=== PATIENT | female | born 1995 | race African-American/Black ===

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

== ENCOUNTER 2017-01-02 19:25 | Emergency (ER) | payer OTHER ==
[~2017-01-02] VITALS: Ht 154.9 cm; Wt 54.0 kg
[2017-01-02 20:19] VITALS: BP 129/88; PULSE 90; RESP 18; O2SAT 100
--- NOTE | 2017-01-02 21:09 | ED.REPORT ---
HPI-Abd Pain F Under 40 Date of Service Jan 02, 2017 ED Provider: David Guzman MD Patient is a 21 year old female with a hx of polysubstance and IV drug use who presents to the ED complaining of bilateral back pain that radiates around to her abdomen. Associated symptoms include fever, chills, urinary urgency, and shaking. She denies dysuria, diarrhea, vomiting, or any other symptoms. She was diagnosed with a kidney stone in June and has been unable to pass it. Her urologist is Zeina Mackenzie. Nursing Notes Stated Complaint: ABDOMINAL PAIN, SHAKING Chief Complaint: General Complaint Nursing Notes Reviewed: Yes Allergies: Coded Allergies: chlorpromazine (Verified Allergy, Unknown, 06/22/16) Scheduled Cefuroxime Axetil (Cefuroxime) 500 Mg Tablet 500 MG PO BID Omeprazole (Omeprazole) 20 Mg Capsule.dr 20 MG PO DAILY Scheduled PRN Naproxen (Naprosyn) 500 Mg Tablet 500 MG PO BID PRN PRN For Pain General Time Seen by MD: 21:08 Chief Complaint Other (Back pain ) Hx Obtained From: Patient Arrived By: Walk-in Onset Occurred: Onset unknown Location: : Back Radiation: : Abdomen lower Severity: Current: Moderate Severity: Maximum: Moderate Associated with: Reports: Chills Past Medical History Past Medical History Suicidal ideation Polysubstance abuse w/multpiple prior ED Visits ADHD Ovarian cysts Reports: Mental illness Reports: IV Drug use Past Surgical History none reported Smoking History Current Every Day Smoker Social History Alcohol Use: Denies alcohol use Drug Use: IV drugs, Meth, THC Other Social History: Poor social support, Local resident Ambulatory Status Independent Review of Systems Constitutional: Reports: Chills, Fever GI: Reports: Abdominal pain, Denies: Diarrhea, Vomiting Female: Reports: Urinary urgency, Denies: Dysuria Musculoskeletal: Reports: Back pain Complete sys rev & neg: except as marked. Neurologic: Reports: Shaking Physical Exam Initial Vital Signs Vital Signs (First) Date Time Temp Pulse Resp B/P Pulse Ox O2 Delivery O2 Flow Rate FiO2 01/02/17 20:19 36.8 90 18 129/88 100 01/02/17 21:12 Room Air Initial VS: Reviewed, Vital signs normal Neck: Full range of motion Neurologic: Alert, Oriented, Nonfocal Psychiatric: Mood/affect normal, Behavior normal, Normal thought content General/Constitutional: Awake, Alert, No acute distress Respiratory / Chest: Breath sounds NL, Breath sounds = bilat, No respiratory distress Cardiovascular: Heart rate NL, Regular rhythm, Heart sounds NL Abdomen: Soft Mild lower abdominal tenderness Back: Atraumatic Head / Eyes: Normocephalic Ortez from picking skin - consistent with meth use ENT: Mucous membranes moist Skin: Warm, Dry Multiple scars on forearms from prior suicide attempts some ortez of IV drug use on forearms, old Lower Extremity / Pelvis / MS: No edema Interpretation & Diagnostics Lab Results Interpretation Result Diagram: 01/02/17210401/02/172104 Test 01/02/17 21:05 01/02/17 21:49 White Blood Count 6.9th/mm3 (3.8-10.1) Red Blood Count 4.27mil/mm3 (3.90-5.20) Hemoglobin 12.2g/dL (12.0-15.6) Hematocrit 36.4% (35.0-46.0) Mean Corpuscular Volume 85.2fL (81-100) Mean Corpuscular Hemoglobin 28.6pg (27.0-35.0) Mean Corpuscular Hemoglobin Concent 33.5% (32.0-37.0) Red Cell Distribution Width 12.3% (12.3-15.4) Platelet Count 250bil/L (150-400) Neutrophils (%) (Auto) 35.8% (40-74) Lymphocytes (%) (Auto) 54.2% (14-46) Monocytes (%) (Auto) 7.2% (4-12) Eosinophils (%) (Auto) 2.4% (0-5) Basophils (%) (Auto) 0.4% (0-3) Sodium Level 138mEq/L (134-144) Potassium Level 3.2mEq/L (3.5-5.2) Chloride Level 102mEq/L (97-108) Carbon Dioxide Level 24mmol/L (18-29) Blood Urea Nitrogen 10mg/dL (6-20) Creatinine 0.93mg/dL (0.57-1.00) Estimat Glomerular Filtration Rate 100mL/min (>59) Glucose Level 94mg/dL (60-99) Calcium Level 9.2mg/dL (8.5-10.1) Magnesium Level 2.1mg/dL (1.6-2.6) Total Bilirubin 0.2mg/dL (0.0-1.2) Aspartate Amino Transf (AST/SGOT) 15U/L (0-50) Alanine Aminotransferase (ALT/SGPT) 14U/L (0-32) Alkaline Phosphatase 53U/L (25-150) Total Protein 6.8g/dL (6.4-8.4) Albumin 4.0g/dL (3.4-5.0) Lipase 21U/L (13-60) Urine Color Yellow (YELLOW) Urine Appearance Clear (CLEAR,HAZY) Urine pH 6.5 (5.0-8.0) Urine Specific [place] 1.010 (1.003-1.035) Urine Protein Negativemg/dL (NEG,TRACE) Urine Glucose (UA) Negativemg/dL (NEGATIVE) Urine Ketones Negativemg/dL (NEGATIVE) Urine Occult Blood Negative (NEGATIVE) Urine Nitrite Negative (NEGATIVE) Urine Bilirubin Negative (NEGATIVE) Urine Urobilinogen Normalmg/dL (NORMAL) Urine Leukocyte Esterase Trace (NEGATIVE) Urine RBC 0-2/hpf (0-2) Urine WBC 6-10/hpf (0-5) Urine Epithelial Cells Few/hpf (NONE-MOD) Urine Crystals None seen (NONE SEEN) Urine Bacteria Few/hpf (NONE-FEW) Urine Hyaline Casts None/lpf (NONE) Urine Granular Casts None seen (NONE SEEN) Urine Waxy Casts None seen (NONE SEEN) Urine Red Blood Cell Casts None seen (NONE SEEN) Urine White Blood Cell Casts None seen (NONE SEEN) Urine Mucus None seen (None Seen) Urine Trichomonas None seen (NONE SEEN) Urine Yeast None (NONE SEEN) Urinalysis Comment None Urine Culture Reflexed Indicated Lab Results Interpretation: US RENAL: CONCLUSION: No renal calculi or hydronephrosis identified. Devan Chau M.D. Re-Eval/Medical Decision Med Decision/Clinical Course Med Decision/Clinical Course: 21-year-old with history of IV drug abuse presents with flank pain and urinary urgency. Urine is positive for UTI. Ultrasound shows no evidence of obstruction. Begun with Rocephin IV and Ceftin to follow. Follow-up with urology as previously scheduled. Re-Evaluation/Progress : Time of Eval: 22:29 )( Re-Eval Abdomen: Soft Re-Evaluation/Progress Note: Discussed US results. Discussed plan for discharge. Patient understands and agrees with plan. All questions addressed at this time. Counseled Regarding: Diagnosis, Lab results, Need for follow-up, When/why to return to ED Discharge & Departure Primary Impression: UTI (urinary tract infection) Urinary tract infection type: site unspecified Hematuria presence: without hematuria Qualified Code: N39.0 - Urinary tract infection, site not specified Disposition: Home Discharge Condition All VS Reviewed: Yes Condition: Stable Additional Instructions: Drink plenty of fluids and stay well-hydrated. Begin Ceftin twice daily for ten days. Follow-up with your doctor in the office. Follow-up with urology as planned. Return if any immediate issues. Naprosyn twice daily if needed for pain. Referrals: [facility] Res[facility] (PCP) Scribe Attestation Portions of this note were transcribed by Princess Murrieta. I, Dr. Guzman personally performed the history, physical exam and medical decision-making; I reviewed and confirmed the accuracy of the information in the transcribed note. Signed by: Princess Murrieta 01/02/2017, [id number] copies to: [facility] David Guzman MD Jan 02, 2017 21:09 PRINCESS MURRIETA Jan 02, 2017 21:28
[2017-01-02 21:12] VITALS: BP 122/81; PULSE 83; RESP 16; O2SAT 100
[2017-01-02 21:16] LABS: BASOPHILS % (AUTO) 0.4 % (0-3); EOSINOPHILS % (AUTO) 2.4 % (0-5); MONOCYTES % (AUTO) 7.2 % (4-12); Mean Corpuscular Hemoglobin 28.6 pg (27.0-35.0); Mean Corpuscular Volume 85.2 fL (81-100); NEUTROPHILS % (AUTO) 35.8 % (40-74); Platelet Count 250 bil/L (150-400)
[2017-01-02 21:40] LABS: Magnesium 2.1 mg/dL (1.6-2.6)
[2017-01-02 22:18] LABS: APPEARANCE,URINE CLEAR (CLEAR,HAZY); COLOR,URINE YELLOW (YELLOW); OCCULT BLOOD,URINE NEGATIVE (NEGATIVE); PH,URINE 6.5 (5.0-8.0); UROBILINOGEN,URINE NORMAL (NORMAL)
[2017-01-02] MEDS ORDERED: cefTRIAXone Inj 2,000 MG in Dextrose 5% Minibag Plus 50 ML IV ONE (22:30)
[2017-01-02] MEDS ORDERED: Ketorolac 15 mg/mL Inj IVPUSH ONE (22:30)
[2017-01-02] MEDS ORDERED: CEFU500T61 PO (23:09)
[2017-01-02] MEDS ORDERED: NAPR500T PO (23:09)
[2017-01-02 23:21] VITALS: BP 115/78; PULSE 73; RESP 14; O2SAT 100
--- NOTE | 2017-01-03 07:27 | DRSVH ---
PROCEDURE: US RENAL SONOGRAM INDICATIONS: poss hydronephrosis rt TECHNIQUE: Real-time scanning was performed of the kidneys and bladder, with image documentation. COMPARISON: [facility], US, US APPENDIX, 06/22/2016, 23:26. FINDINGS: Kidneys: Kidneys are normal in size. Right kidney measures 10.1 cm long; left kidney measures 10.0 cm long. Right renal cortical thickness is 1.3 cm; left renal cortical thickness is 1.7 cm. Renal c ortical echotexture is normal. No hydronephrosis or nephrolithiasis. No suspicious solid mass lesio ns. Bladder: Pre-void bladder volume is 127 mL. Post-void residual is zero mL. Pre-void images demonst rate no intraluminal masses or stones. On pre-void images, the left ureteral jet is noted with color Doppler interrogation. (Of note, ureteral jets may not be detectable in up to 25% of cases due to i nsufficient differences in specific gravity between ureteral and bladder urine). Miscellaneous: No free pelvic fluid. IMPRESSION: The kidneys are sonographically normal. Normal left ureteral jet. The right ureteral jet is not identified. Dictated by: Ivan Michaud M.D. on 01/03/2017 at 7:24 Approved by: Ivan Michaud M.D. on 01/03/2017 at 7:25
== END 2017-01-02 23:22 | disposition home or self-care (01) ==
LOC: SED 19:25
DX: N39.0 Urinary tract infection, site not specified (principal); F90.9 Attention-deficit hyperactivity disorder, unspecified type; F17.200 Nicotine dependence, unspecified, uncomplicated; Z88.8 Allergy status to other drugs, medicaments and biological substances
CPT/HCPCS: 36415; 76770; 80053; 81000; 81002; 81025; 83690; 83735; 85025; 87086; 87088; 96365; 96375; 99285; J0696; J1885

== ENCOUNTER 2017-01-04 18:16 | Emergency (ER) | payer OTHER ==
[~2017-01-04] VITALS: Ht 154.9 cm; Wt 54.0 kg
[~2017-01-04 18:16] MED LIST changes: +CEFU500T61 PO; +NAPR500T PO
[2017-01-04 18:33] VITALS: BP 143/106; PULSE 115; RESP 20; O2SAT 99
--- NOTE | 2017-01-04 18:53 | ED.REPORT ---
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 She usually smokes meth but today she injected it. Pt denies suicidal and homicidal ideation. She states that right after injecting the methamphetamine that her skin turned yellow and then her cat also turned yellow. She was quite disturbed by all of this and decided to come to the emergency room. She reports that she is no longer yellow. Nursing Notes Stated Complaint: OVERDOSE Chief Complaint: Substance Abuse Nursing Notes Reviewed: Yes Allergies: Coded Allergies: chlorpromazine (Verified Allergy, Unknown, 06/22/16) Scheduled Cefuroxime Axetil (Cefuroxime) 500 Mg Tablet 500 MG PO BID Omeprazole (Omeprazole) 20 Mg Capsule.dr 20 MG PO DAILY Scheduled PRN Naproxen (Naprosyn) 500 Mg Tablet 500 MG PO BID PRN PRN For Pain General Time Seen by Provider: 18:32 Chief Complaint Other (methamphetamine use) Hx Obtained From: Patient Arrived By: Ambulance Onset Occurred: Just prior to arrival Symptom Duration: Since onset Recent Healthcare: No recent doctor visit, No recent hospitalization Similar Sx Previous: No Past Medical History Past Medical History Suicidal ideation Polysubstance abuse w/multpiple prior ED Visits ADHD Ovarian cysts Reports: Mental illness Reports: IV Drug use Past Surgical History none reported Smoking History Current Every Day Smoker Social History Alcohol Use: Denies alcohol use Drug Use: IV drugs, Meth, THC Other Social History: Poor social support, Local resident Ambulatory Status Independent Review of Systems Review of Systems Note: "turned yellow" GI: Denies: Nausea, Vomiting Neurologic: Denies: Change LOC Psychiatric: Reports: Anxiety, Denies: Suicidal ideation Complete sys rev & neg: except as marked. Physical Exam Initial Vital Signs Vital Signs (First) Date Time Temp Pulse Resp B/P Pulse Ox O2 Delivery O2 Flow Rate FiO2 01/04/17 18:33 36.7 115 20 143/106 99 Room Air Initial VS: Reviewed General/Constitutional: Awake, Cooperative Behavior: Positive: Anxious Respiratory / Chest: Atraumatic, Breath sounds NL, Breath sounds = bilat, No respiratory distress Cardiovascular: Regular rhythm, Heart sounds NL, No gallop, No murmurs, No rubs Heart Rate / Rhythm: Positive: Tachycardia Abdomen: Atraumatic, Soft, Non-tender Neurologic: Oriented X3, Speech NL, No motor deficits Psychiatric: Affect NL, Mood NL, Not suicidal, Not homicidal Head / Eyes: Atraumatic, Normocephalic, PERRL, EOMI Neck: Atraumatic, Supple Upper Extremity / MS: No deformity well healing superficial abrasions to left wrist Lower Extremity / Pelvis / MS: Atraumatic, Inspection NL, No deformity Re-Eval/Medical Decision Med Decision/Clinical Course The patient is a 21 year old female w/ a hx of substance abuse with multiple prior ED visits who presents to the ED via EMS c/o turning 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 She usually smokes meth but today she injected it. Pt denies suicidal and homicidal ideation. She states that right after injecting the methamphetamine that her skin turned yellow and then her cat also turned yellow. She was quite disturbed by all of this and decided to come to the emergency room. She reports that she is no longer yellow. Here in the emergency department the patient is somewhat tachycardic in the setting of injecting methamphetamine however she is otherwise afebrile and hemodynamically stable. 1850: Pt checked. She denies suicidal and homicidal ideation. Plan for patient to speak with social work job titles. At this time, I see no evidence of acute psychiatric illness. She has been using methamphetamine however she is without chest pain, shortness of breath, suicidal ideation and there is no evidence of acute traumatic injury or acute neurologic abnormality. Do not feel that laboratory or imaging studies are indicated. Patient expresses some interest in not using methamphetamine and we have provided her with resources for seeking drug treatment. I do not feel that she requires further treatment in the emergency room. Prior to discharge follow-up and return precautions were reviewed in detail with the patient who verbalized understanding and agreement with the plan. The patient was discharged in stable condition. Counseled Regarding: Diagnosis, Lab results, Need for follow-up, When/why to return to ED Discharge & Departure Impression: Primary Impression: Methamphetamine abuse Additional Impressions: Tachycardia Anxiety Disposition: Home Discharge Condition Condition: Stable Additional Instructions: Thank you for seeking care at the emergency room. It is difficult for us to make definitive diagnoses in the ED but we believe that you are experiencing effects of injecting methamphetamine. Our primary goal today in the ED was to evaluate you for any life-threatening conditions. Your evaluation was reassuring. You should follow-up with your primary doctor in the next week. It is very important that ou stop using methamphetamine. Follow-up with the resources that we provided for you. You should return to the ED immediately if you develop thoughts of harming herself/others, any new/concerning symptoms, fevers, vomiting, cough, shortness of breath, chest pain, lightheadedness, weakness or any other concerning signs or symptoms. Thank you for letting us partake in your care today. Referrals: [facility] Res[facility] (PCP) Scribe Attestation Portion of this note were transcribed by Jewels Reynolds. I, Dr. Chanel, personally performed the history, physical exam, and medical decision-making: I reviewed and confirmed the accuracy for the information in the transcribed note. Signed by: lore Moore, 01/04/17 2000 copies to: [facility] Darius Chanel MD Jan 04, 2017 18:53 Jewels Reynolds Jan 04, 2017 19:25
[2017-01-04 19:08] VITALS: BP 144/73; PULSE 108; RESP 16; O2SAT 100
== END 2017-01-04 19:10 | disposition home or self-care (01) ==
LOC: SED 18:16 → EDUNIT# 18:16 → EDBD 18:17 → SED 19:10
DX: F15.10 Other stimulant abuse, uncomplicated (principal); R00.0 Tachycardia, unspecified; F41.9 Anxiety disorder, unspecified; F17.200 Nicotine dependence, unspecified, uncomplicated; Z79.899 Other long term (current) drug therapy; Z88.8 Allergy status to other drugs, medicaments and biological substances

== ENCOUNTER 2017-01-21 03:03 | Emergency (ER) | payer OTHER ==
[2017-01-21 03:07] VITALS: BP 166/97; PULSE 69; RESP 12; O2SAT 100
--- NOTE | 2017-01-21 03:22 | ED.REPORT ---
HPI-Overdose/Alcohol Toxicity Date of Service Jan 21, 2017 ED Provider: Dr. Monet Pt is a 21 year old female with a hx of IV drug use presenting to the ED via EMS for substance abuse. Medics report that the pt called 911 from the [employer] parking lot stating that she overdosed on meth. Pt reports that she is having a hard time breathing. Nursing Notes Stated Complaint: METH USE Chief Complaint: Substance Abuse Nursing Notes Reviewed: Yes Allergies: Coded Allergies: chlorpromazine (Verified Allergy, Unknown, 01/21/17) Scheduled Cefuroxime Axetil (Cefuroxime) 500 Mg Tablet 500 MG PO BID Omeprazole (Omeprazole) 20 Mg Capsule.dr 20 MG PO DAILY Scheduled PRN Naproxen (Naprosyn) 500 Mg Tablet 500 MG PO BID PRN PRN For Pain General Time Seen by Provider: 03:24 Chief Complaint Intoxicated, illicit drug Hx Obtained From: Patient, EMS Arrived By: Ambulance Onset Occurred: Just prior to arrival Symptom Duration: Since onset Progression Since Onset: Constant Severity: Current: No pain currently Severity: Maximum: No pain Recent Healthcare: No recent hospitalization, Recent doctor visit Similar Sx Previous: Yes Risk-Overdose/Alcohol Tox )( Suicide Risk Stratification : Prior psych admission: Substance abuse RF Statements: Risk factors reviewed Past Medical History Past Medical History Suicidal ideation Polysubstance abuse w/multiple prior ED Visits ADHD Ovarian cysts Reports: Mental illness Reports: IV Drug use Past Surgical History none reported Smoking History Current Every Day Smoker Social History Alcohol Use: Denies alcohol use Drug Use: IV drugs, Meth, THC Other Social History: Poor social support, Local resident Ambulatory Status Independent Review of Systems Unable to Obtain ROS Intoxicated Respiratory: Reports: Shortness of breath Physical Exam Initial Vital Signs Vital Signs (First) Date Time Temp Pulse Resp B/P Pulse Ox O2 Delivery O2 Flow Rate FiO2 01/21/17 03:07 36.7 69 12 166/97 100 Room Air Initial VS: Reviewed, Vital signs abnormal Head / Eyes: Atraumatic, Normocephalic, PERRL ENT: Mucous membranes moist, Conjunctiva normal, No scleral icterus Neck: Supple, Non-tender, Full range of motion Extremities: Vascular intact, Neuro intact, No swelling, No tenderness General/Constitutional: Awake Respiratory / Chest: Atraumatic, Breath sounds NL, No chest tenderness Tachypnic Cardiovascular: Regular rhythm, Heart sounds NL Tachycardic Abdomen: Atraumatic, Soft, Non-tender Neurologic: Oriented X3, Speech NL, No motor deficits, No sensory deficits Psychiatric: Not suicidal, Not homicidal Seems like she keeps looking to the right at things that aren't there, may be hallucinating. Skin: Warm, Dry Pick sores all over face Interpretation & Diagnostics Urine Tox: Positive for marijuana, meth and amphetamines Re-Eval/Medical Decision Med Decision/Clinical Course Methamphetamine toxicity. Now resolved. She is artery hooked up with [facility] for outpatient services and they are trying to get her an inpatient bed. She is discharged home with her stepfather. Re-Evaluation/Progress #1: Time of Eval: 03:27 Patient Status: Condition improved Re-Evaluation/Progress Note: Performed physical exam. Re-Evaluation/Progress #2: Time of Eval: 05:57 Patient Status: Condition improved Re-Evaluation/Progress Note: Pt much improved. Discussed plan for discharge and follow up at [facility]. Counseled Regarding: Diagnosis, Lab results, Need for follow-up, When/why to return to ED Discharge & Departure Impression: Primary Impression: Substance abuse Disposition: Home Discharge Condition All VS Reviewed: Yes Condition: Improved Patient Instructions: Methamphetamine Abuse (ED) Additional Instructions: We recommend you go to treatment. Continue your efforts with [facility] to get a treatment bed and/or do outpatient treatment. Referrals: [facility] Residency [facility] (PCP) Scribe Attestation Portions of this note were transcribed by Brielle Bran. I, Dr. Monet personally performed the history, physical exam and medical decision-making; I reviewed and confirmed the accuracy of the information in the transcribed note. Signed by: Chas Ahn, 01/21/2017 at 0600. copies to: [facility] Pacheco Monet MD Jan 21, 2017 03:22 BRIELLE BRAN Jan 21, 2017 03:30
[2017-01-21 05:21] VITALS: BP 152/99; PULSE 87; RESP 16; O2SAT 100
== END 2017-01-21 05:58 | disposition home or self-care (01) ==
LOC: EDUNIT# 03:03 → SED 03:03 → EDBD 03:03 → SED 05:58
DX: F19.10 Other psychoactive substance abuse, uncomplicated (principal); F17.200 Nicotine dependence, unspecified, uncomplicated; F90.1 Attention-deficit hyperactivity disorder, predominantly hyperactive type; Z79.899 Other long term (current) drug therapy; Z88.8 Allergy status to other drugs, medicaments and biological substances